=== PATIENT | female | born 1955 | race Two or more races ===

== ENCOUNTER 2018-10-08 18:08 | Emergency (ER) | payer MEDICAID ==
[~2018-10-08] VITALS: Ht 165.1 cm; Wt 59.0 kg
--- NOTE | 2018-10-08 18:16 | NUR ---
ED Nurse Note: Pt BIBA due to bilateral lower extremitites edema x 5 days. +3 pitting edema. Denies pain. Pt states that 2 weeks ago, pt was admitted to the hospital for flare-up of Chrohn's disease. After discharge from hospital, edema got worse. A + O x4. Noted to have redness w/ scabbing on the left upper knee. Warm to touch.
[2018-10-08 18:18] VITALS: BP 127/74
[2018-10-08] MEDS ORDERED: ACETAMINOPHEN-1 EAC1 ORAL (18:37)
[2018-10-08] MEDS ORDERED: NORCO 5-325 TA1 EACH ORAL (18:37)
[2018-10-08] MEDS ORDERED: CIPROFLOXACIN500 M2 ORAL (18:37)
[2018-10-08] MEDS ORDERED: PREDNISONE10 MG ORAL (18:37)
[2018-10-08] MEDS ORDERED: PROTONIX20 MG ORAL (18:37)
--- NOTE | 2018-10-08 18:37 | Emergency Room Report ---
History of Present Illness General Chief Complaint: General Complaint Source: Patient, EMS Present Illness HPI Patient is a 63-year-old female presented after increased bilateral lower extremity swelling. Patient had recent hospitalization for Crohn's disease at [facility]. Patient was reportedly given IV fluids as well as oral steroids. She reports of increased bilateral lower extremity swelling and discomfort. She had been taking ciprofloxacin. She reports having increased generalized weakness. She reports having recent hemoglobin level which was low. She denies any current bleeding. Allergies: Coded Allergies: HYDROCODONE (Unverified Allergy, Unknown, 10/08/18) Patient History Past Medical History: see triage record : 5 Para: 4 Reviewed Nursing Documentation: PMH: Agreed; PSxH: Agreed Review of Systems All Other Systems: negative except mentioned in HPI Physical Exam Vital Signs Date Time Temp Pulse Resp B/P (MAP) Pulse Ox O2 Delivery O2 Flow Rate FiO2 10/08/18 18:01 99.1 96 16 118/70 98 Room Air 10/08/18 18:18 96 Sp02 EP Interpretation: reviewed, normal General Appearance: normal inspection, well appearing, no apparent distress, alert, GCS 15, Chronically Ill Head: atraumatic ENT: normal ENT inspection, hearing grossly normal, normal voice Neck: normal inspection, full range of motion, supple, no bony tend Respiratory: normal inspection, lungs clear, normal breath sounds, no respiratory distress, no retraction, no wheezing Cardiovascular #1: regular rate, rhythm, edema - bilateral lower extremity swelling Gastrointestinal: normal inspection, normal bowel sounds, non tender, soft, no guarding, no hernia Genitourinary: no CVA tenderness Musculoskeletal: normal inspection, back normal, normal range of motion Neurologic: normal inspection, alert, responsive, speech normal Psychiatric: normal inspection, judgement/insight normal, mood/affect normal Skin: no rash, other - small erythema to left knee area, no warmth or fluctuance Medical Decision Making Diagnostic Impression: Primary Impression: Hypoalbuminemia Additional Impression: Crohn's disease ER Course Patient presented for generalized weakness. Differential diagnosis included was not limited to anemia, urinary tract infection, electrolyte abnormality, hypothyroidism, myocardial infarction, myasthenia gravis, dehydration, among others. Because of complexity of patient's case laboratory testing and imaging studies were ordered.Laboratory testing was notable for market hypoalbuminemia. Patient noted to have minimally elevated white blood count due to patient's recent steroid use. Patient was advised to keep legs elevated. She does not appear to have any evidence risk factors for DVT. EKG interpreted by me showed normal sinus rhythm with rate is [address] or T wave changes.Patient was advised to wear compression stockings and to keep her legs elevated. Labs Test 10/08/18 16:30 10/08/18 18:30 White Blood Count 13.8 K/UL (4.8-10.8) Red Blood Count 3.73 M/UL (4.20-5.40) Hemoglobin 10.6 G/DL (12.0-16.0) Hematocrit 33.7 % (37.0-47.0) Mean Corpuscular Volume 90 FL (80-99) Mean Corpuscular Hemoglobin 28.3 PG (27.0-31.0) Mean Corpuscular Hemoglobin Concent 31.3 G/DL (32.0-36.0) Red Cell Distribution Width 15.1 % (11.6-14.8) Platelet Count 278 K/UL (150-450) Mean Platelet Volume 4.7 FL (6.5-10.1) Neutrophils (%) (Auto) % (45.0-75.0) Lymphocytes (%) (Auto) % (20.0-45.0) Monocytes (%) (Auto) % (1.0-10.0) Eosinophils (%) (Auto) % (0.0-3.0) Basophils (%) (Auto) % (0.0-2.0) Differential Total Cells Counted 100 Neutrophils % (Manual) 97 % (45-75) Lymphocytes % (Manual) 2 % (20-45) Monocytes % (Manual) 1 % (1-10) Eosinophils % (Manual) 0 % (0-3) Basophils % (Manual) 0 % (0-2) Band Neutrophils 0 % (0-8) Platelet Estimate Adequate Platelet Morphology Normal Polychromasia 1+ Hypochromasia 1+ Anisocytosis 1+ Macrocytosis 1+ Sodium Level 139 MMOL/L (136-145) Potassium Level 3.9 MMOL/L (3.5-5.1) Chloride Level 104 MMOL/L (98-107) Carbon Dioxide Level 27 MMOL/L (21-32) Anion Gap 8 mmol/L (5-15) Blood Urea Nitrogen 15 mg/dL (7-18) Creatinine 0.7 MG/DL (0.55-1.30) Estimat Glomerular Filtration Rate > 60 mL/min (>60) Glucose Level 133 MG/DL (74-106) Calcium Level 8.9 MG/DL (8.5-10.1) Total Bilirubin 0.5 MG/DL (0.2-1.0) Aspartate Amino Transf (AST/SGOT) 22 U/L (15-37) Alanine Aminotransferase (ALT/SGPT) 24 U/L (12-78) Alkaline Phosphatase 103 U/L (46-116) Troponin I 0.001 ng/mL (0.000-0.056) Total Protein 6.3 G/DL (6.4-8.2) Albumin 1.8 G/DL (3.4-5.0) Globulin 4.5 g/dL Albumin/Globulin Ratio 0.4 (1.0-2.7) Lipase 95 U/L (73-393) Thyroid Stimulating Hormone (TSH) 0.670 uiU/mL (0.358-3.740) Urine Color Yellow Urine Appearance Clear Urine pH 5 (4.5-8.0) Urine Specific [place] 1.015 (1.005-1.035) Urine Protein 1+ (NEGATIVE) Urine Glucose (UA) Negative (NEGATIVE) Urine Ketones Negative (NEGATIVE) Urine Blood 2+ (NEGATIVE) Urine Nitrite Negative (NEGATIVE) Urine Bilirubin Negative (NEGATIVE) Urine Urobilinogen Normal MG/DL (0.0-1.0) Urine Leukocyte Esterase 1+ (NEGATIVE) Urine RBC 2-4 /HPF (0 - 2) Urine WBC 0-2 /HPF (0 - 2) Urine Squamous Epithelial Cells Occasional /LPF Urine Bacteria Few /HPF (NONE) Urine Mucus Many /LPF (NONE/OCC) EKG Diagnostic Results Rate: normal Rhythm: NSR ST Segments: no acute changes Last Vital Signs Date Time Temp Pulse Resp B/P (MAP) Pulse Ox O2 Delivery O2 Flow Rate FiO2 10/08/18 18:18 88 16 Room Air 96 10/08/18 18:18 98.9 127/74 98 Status: improved Disposition: HOME, SELF-CARE Condition: Stable Sky Childs MD Oct 08, 2018 18:37
[2018-10-08 18:42] LABS: HEMATOCRIT 33.7 % (37.0-47.0); HEMOGLOBIN 10.6 G/DL (12.0-16.0); MEAN CORPUSCULAR VOLUME 90 FL (80-99); PLATELET COUNT 278 K/UL (150-450); RED BLOOD COUNT 3.73 M/UL (4.20-5.40); RED CELL DISTRIBUTION WIDTH 15.1 % (11.6-14.8); WHITE BLOOD COUNT 13.8 K/UL (4.8-10.8)
[2018-10-08 18:59] LABS: ANION GAP 8 mmol/L (5-15); BLOOD UREA NITROGEN 15 mg/dL (7-18); CALCIUM 8.9 MG/DL (8.5-10.1); CARBON DIOXIDE 27 MMOL/L (21-32); CHLORIDE 104 MMOL/L (98-107); CREATININE 0.7 MG/DL (0.55-1.30); POTASSIUM 3.9 MMOL/L (3.5-5.1); SODIUM 139 MMOL/L (136-145)
--- NOTE | 2018-10-08 19:00 | NUR ---
HAND-OFF: Report given to LENORE Robertson.
--- NOTE | 2018-10-08 19:05 | NUR ---
ED Nurse Note: REPORT RECEIVED FROM LENORE MENDEZ PT IN BED ON HER PHONE, VSS AT THE MOMENT. WILL AWAIT FURTHER ER MD ORDER.
[2018-10-08 19:10] LABS: ALANINE AMINOTRANSFERASE 24 U/L (12-78); ALBUMIN 1.8 G/DL (3.4-5.0); ALBUMIN/GLOBULIN RATIO 0.4 (1.0-2.7); ALKALINE PHOSPHATASE 103 U/L (46-116); ASPARTATE AMINO TRANSFERASE 22 U/L (15-37); BILIRUBIN,TOTAL 0.5 MG/DL (0.2-1.0)
[2018-10-08 19:19] VITALS: BP 124/71
[2018-10-08 19:23] LABS: APPEARANCE,URINE CLEAR; BILIRUBIN, URINE NEGATIVE (NEGATIVE); GLUCOSE, URINE (UA) NEGATIVE (NEGATIVE); KETONES,URINE NEGATIVE (NEGATIVE); LEUKOCYTE ESTERASE ,URINE 1+ (NEGATIVE); NITRITE,URINE NEGATIVE (NEGATIVE); PH,URINE 5 (4.5-8.0); PROTEIN,URINE 1+ (NEGATIVE); UROBILINOGEN,URINE NORMAL MG/DL (0.0-1.0)
[2018-10-08 19:27] LABS: COLOR,URINE YELLOW
[2018-10-08 20:20] VITALS: BP 118/73
--- NOTE | 2018-10-08 20:20 | NUR ---
ED Nurse Note: PT IS READY FOR D/C PT WAS PROVIDED WITH TAXI VOUCHER. AWAITING TAXI AT THIS MOMENT
--- NOTE | 2018-10-08 20:31 | NUR ---
ED Nurse Note: PT IS D/C PER ERMD ORDER. PT WAS GIVEN DISCHARGE AND PRESCRIPTION INSTRUCTIONS PROVIDED. PT IS AOX4, AND WAS ABLE TO VERBALIZE UNDERSTANDING, ID BAND REMOVED AND IV SITE DISCONTINUED WITHOUT COMPLICATIONS. PT VSS. PT TOOK ALL PERSONAL BELONGINGS BROUGHT TO THE ER HOME.
--- NOTE | 2018-10-09 17:32 | Cardiology Report ---
APPROVED REPORT EKG Measurement Heart [id number] Normal sinus rhythm Normal ECG
== END 2018-10-08 20:30 | disposition home or self-care (01) ==
LOC: EDBD 18:08 → EMR 18:41
DX: M79.89 Other specified soft tissue disorders (principal); E88.09 Other disorders of plasma-protein metabolism, not elsewhere classified; K50.90 Crohn's disease, unspecified, without complications; Z88.5 Allergy status to narcotic agent
CPT/HCPCS: 36415; 80053; 81001; 83690; 84443; 84484; 85007; 85025; 93005; 96374; 99284; J1940

== ENCOUNTER 2020-07-28 04:42 | Emergency (ER) | payer MEDICAID ==
[~2020-07-28] VITALS: Ht 154.9 cm; Wt 55.3 kg
[~2020-07-28 04:42] MED LIST: ACETAMINOPHEN-1 EAC1 ORAL; CIPROFLOXACIN500 M2 ORAL; NORCO 5-325 TA1 EACH ORAL; PREDNISONE10 MG ORAL; PROTONIX20 MG ORAL
[2020-07-28 05:00] VITALS: BP 139/67
--- NOTE | 2020-07-28 05:00 | NUR ---
ED Nurse Note: Patient brought into ED by GIRISH PIPER [id number] for tooth pain x 2 days. She states she has food stuck in between her L upper teeth that has now caused severe pain and irritation. Swelling noted to L side of face. Patient attempted to see two different dentist yesterday, but was unsuccessful without appointment. She said she has been self treating the tooth pain at home with hydrocodone and tylenol; no relief.
[2020-07-28] MEDS ORDERED: AUGMENTIN 875-1 EAC1 ORAL (05:06)
--- NOTE | 2020-07-28 05:10 | Emergency Room Report ---
History of Present Illness General Chief Complaint: Pain Source: Patient Present Illness HPI Disclaimer: Please note that this report is being documented using [employer] technology. This can lead to erroneous entry secondary to incorrect interpretation by the dictating instrument. HPI: 64-year-old female presents for evaluation of dental pain. Symptoms present 2 days. Denies trauma. Reports aching pain over the left upper molars. Difficulty with eating and chewing on that side. Noted some swelling of the left cheek. Attempted to see to dentist yesterday but none were able to see her. Denies fever, chills. Denies throat swelling, stridor, difficulty with secretions, neck swelling, chest pain, shortness of breath, cough, fever or other symptoms. She took Tylenol and hydrocodone which she is prescribed for chronic abdominal pain. Only minimal relief in symptoms. PMH: Crohn's disease, multiple bowel surgeries PSH: Multiple bowel surgeries, hysterectomy Allergies: Reviewed Social Hx: Reviewed Allergies: Coded Allergies: HYDROCODONE (Unverified Allergy, Unknown, 10/08/18) COVID-19 Screening Contact w/high risk pt: No Experienced COVID-19 symptoms?: No COVID-19 Testing performed SERVICE [employer]LECT[employer]ICIAN: No Patient History Last Menstrual Period: UNK Now: No : 5 Para: 3 Nursing Documentation-PMH Past Medical History: No History, Except For Review of Systems All Other Systems: negative except mentioned in HPI Physical Exam Vital Signs Date Time Temp Pulse Resp B/P (MAP) Pulse Ox O2 Delivery O2 Flow Rate FiO2 07/28/20 04:39 97.0 110 18 139/67 (91) 98 Room Air General: Awake and alert, no acute distress HEENT: NC/AT. EOMI. uvula midline. Nonobstructing tonsils. No oral edema. Tenderness palpation over tooth #14 and 15. Tooth #14 is a gold dental implant. No surrounding gingival ulceration. Moderate gingival edema. Resp: Normal work of breathing Skin: Intact. No abrasions, laceration or rash over the exposed skin MSK: Normal tone and bulk. Moving all extremities. No obvious deformity. Neuro: Awake and alert. Mentating appropriately Medical Decision Making Diagnostic Impression: Primary Impression: Dental implant pain Additional Impression: Pain, dental ER Course This is a 64-year-old female presenting for evaluation of dental pain over tooth numbers 14 and 15. Possible abscess versus early infection. For pain control approximately 4 cc of 0.5% bupivacaine was injected over the 14th tooth to perform a superior alveolar nerve block. Patient noted improvement in symptoms. No complications or significant bleeding. She will be started on Augmentin for possible abscess. Patient states she can call her dentist first thing this morning and schedule an appointment. Recommend she see dentistry as soon as possible. Discussed reasons to return to the ER. She understands and agrees with this treatment plan. Last Vital Signs Date Time Temp Pulse Resp B/P (MAP) Pulse Ox O2 Delivery O2 Flow Rate FiO2 07/28/20 05:00 97.0 110 18 139/67 98 Room Air Disposition: HOME, SELF-CARE Condition: Stable Scripts Amoxicillin/Potassium Clav 875-125* (AUGMENTIN 875-125 TABLET*) 1 Each Tablet 1 TAB ORAL TWICE A DAY, #14 TAB Prov: Shreyas Dumont MD 07/28/20 Patient Instructions: Dental Pain Additional Instructions: Follow-up with dentistry as soon as possible. Please follow-up with your primary care doctor in the next 1 to 3 days to discuss this emergency department visit and for reevaluation. If you have any new or worsening symptoms please return to the emergency department for reevaluation. Please note that this report is being documented using [employer] technology. This can lead to erroneous entry secondary to incorrect interpretation by the dictating instrument. Shreyas Dumont MD Jul 28, 2020 05:09
[2020-07-28] MEDS ORDERED: Bupivacaine 0.5% Inj 30 ml vial INJ ONE (05:15)
[2020-07-28 05:27] VITALS: BP 135/68
--- NOTE | 2020-07-28 05:27 | NUR ---
ER DISCHARGE NOTE: Patient is cleared to be discharged per ERMD, pt is aox4, on room air, with stable vital signs. pt was given dc and prescription instructions, pt was able to verbalize understanding, pt id band removed. pt is able to ambulate with steady gait. pt took all belongings.
== END 2020-07-28 05:30 | disposition home or self-care (01) ==
LOC: EDBD 04:42 → EMR 05:01
DX: K08.89 Other specified disorders of teeth and supporting structures (principal); K50.90 Crohn's disease, unspecified, without complications; Z88.6 Allergy status to analgesic agent; Z90.710 Acquired absence of both cervix and uterus
CPT/HCPCS: 64400; S0020; Z7502; 99282